=== PATIENT | male | born 1990 | race Two or more races ===

== ENCOUNTER 2022-03-12 02:15 | Emergency (ER) | payer SELFPAY ==
[~2022-03-12] VITALS: Ht 177.8 cm; Wt 100.0 kg
[2022-03-12 02:31] VITALS: BP 108/72
== END 2022-03-12 03:05 | disposition left against medical advice (07) ==
LOC: ER 02:15
DX: F10.129 Alcohol abuse with intoxication, unspecified (principal); Y90.0 Blood alcohol level of less than 20 mg/100 ml
CPT/HCPCS: 99283